=== PATIENT | female | born 1955 | race Caucasian/White ===

== ENCOUNTER → 2016-06-15 | Outpatient (CLI) | payer MEDICARE, OTHER ==
[~2016-06-15] MED LIST: BUTA1CAP PO; GABA300C5 PO; GLIP5TAB8 PO; KOMB2.5T PO; LIDO5CRE7 TOPICAL; LIDO5GEL RECTAL; LISI-363 PO; LISI-515 PO; LOSA50TA PO; METH5TAB4 PO; PROP10TA6 PO; PROP20TA3 PO; SAXA1TBM PO; SUMA25TA2 PO; TIZA4CAP3 PO; TRIA0.022 TOPICAL; VALA500T PO; [UNRECOGNIZED DRUG - SUPPLY]; test strips
[2016-06-15 08:25] LABS: AUTOMATED NEUTROPHIL # 1.9 TH/MM3 (1.8-7.7); BASOPHIL # 0.1 TH/MM3 (0-0.2); BASOPHIL % 1.2 % (0.0-2.0); EOSINOPHIL # 0.2 TH/MM3 (0-0.4); EOSINOPHIL % 4.1 % (0.0-4.0); HEMATOCRIT 36.2 % (35.0-46.0); HEMO FLAGS DIFF FINAL; LYMPH % 39.2 % (9.0-44.0); LYMPHOCYTE # 1.6 TH/MM3 (1.0-4.8); MEAN CELL VOLUME 82.8 FL (80.0-100.0); MEAN CORPUSCULAR HEMOGLOBIN 28.8 PG (27.0-34.0); MEAN CORPUSCULAR HGB CONC 34.7 % (32.0-36.0); MONO % 8.9 % (0.0-8.0); NEUT % 46.6 % (16.0-70.0); PLATELET COUNT 333 TH/MM3 (150-450); RED BLOOD COUNT 4.37 MIL/MM3 (4.00-5.30); RED CELL DISTRIBUTION WIDTH 13.9 % (11.6-17.2); WHITE BLOOD COUNT 4.1 TH/MM3 (4.0-11.0)
[2016-06-15 08:49] LABS: WESTERGREN SEDIMENTATION RATE 37 mm/hr (0-30)
[2016-06-15 09:01] LABS: ANION GAP 10 MEQ/L (5-15); BICARBONATE 26.1 MEQ/L (21.0-32.0); BLOOD UREA NITROGEN 14 MG/DL (7-18); CHLORIDE 105 MEQ/L (98-107); GLOMERULAR FILTRATION RATE 84 ML/MIN (>89); GLUCOSE,FASTING 168 MG/DL (74-99); HDL CHOLESTEROL 68.3 MG/DL (40.0-60.0); LDL CHOLESTEROL 76 MG/DL (0-99); POTASSIUM 4.3 MEQ/L (3.5-5.1); SODIUM (NA) 141 MEQ/L (136-145)
[2016-06-15 09:23] LABS: HEMOGLOBIN A1a 1.1 %; HEMOGLOBIN Ao 81.6 %; HEMOGLOBIN F 1.5 %; HEMOGLOBIN LA1C 2.4 %; HEMOGLOBIN P3 4.5 %
== END ==
LOC: CLAB 07:44
PROVIDERS: ATTEND Family Medicine
DX: L58.9 Radiodermatitis, unspecified (principal); E11.9 Type 2 diabetes mellitus without complications; I10 Essential (primary) hypertension; E03.9 Hypothyroidism, unspecified; R51 Headache
CPT/HCPCS: 36415; 80048; 80061; 83036; 84443; 85025; 85652

== ENCOUNTER → 2016-06-29 | Outpatient (CLI) | payer MEDICARE, OTHER ==
[~2016-06-29] MED LIST changes: -BUTA1CAP PO; -TIZA4CAP3 PO
[2016-06-29 08:01] LABS: FREE T3 7.55 PG/ML (2.18-3.98); FREE T4 1.85 NG/DL (0.76-1.46)
== END ==
LOC: CLAB 07:04
PROVIDERS: ATTEND Family Medicine
DX: R94.6 Abnormal results of thyroid function studies (principal)
CPT/HCPCS: 36415; 84439; 84443; 84481

== ENCOUNTER → 2016-07-13 | Outpatient (CLI) | payer MEDICARE, OTHER ==
[~2016-07-13] MED LIST changes: -LISI-363 PO; -SAXA1TBM PO
[2016-07-13 08:36] LABS: FREE T3 7.52 PG/ML (2.18-3.98); FREE T4 1.85 NG/DL (0.76-1.46)
[2016-07-15 23:51] LABS: THYROGLOBULN 27.9 ng/mL (())
== END ==
LOC: CLAB 07:15
PROVIDERS: ATTEND Family Medicine
DX: R94.6 Abnormal results of thyroid function studies (principal)
CPT/HCPCS: 36415; 84432; 84439; 84481; 86800

== ENCOUNTER 2016-07-19 10:51 | Emergency (ER) | payer MEDICARE, OTHER ==
[~2016-07-19] VITALS: Ht 172.7 cm; Wt 71.0 kg
[~2016-07-19 10:51] MED LIST changes: -METH5TAB4 PO; -PROP10TA6 PO; -PROP20TA3 PO; -TRIA0.022 TOPICAL; -VALA500T PO
[2016-07-19 10:53] VITALS: BP 168/73; PULSE 112; RESP 20; TEMP 98.1; O2SAT 99
[2016-07-19] MEDS ORDERED: SILVER SULFADIAZINE 1% CR 400 GM JAR TOPICAL ONE (11:30)
--- NOTE | 2016-07-19 12:01 | PD ---
HPI Chief Complaint: Pain: Acute or Chronic Time Seen by Provider: 11:16 Travel History International Travel<30 days: No Contact w/Intl Traveler<30days: No Traveled to known affect area: No History of Present Illness HPI Patient is a 60 year old female who comes in complaining of pain from chronic radiation painter. She had radiation for anal/rectal cancer in 2006 and has had the burn since then. She says she has had pain in the area for the past 3 weeks. She says that she went to see her PCP who gave her some lidocaine gel, which has helped a little, but she feels like it dried her skin. Currently, she has toothpaste and honey over the area. She denies fever or chills. She denies issues with moving her bowels. She says she had Silvadene cream in the past and this helped. She would like a tub of this lotion. PFSH Past Medical History ADHD: Yes Arthritis: No Bipolar Disorder: Yes Heart Rhythm Problems: No Cancer: Yes (anal/rectal) Cardiovascular Problems: No High Cholesterol: Yes Chemotherapy: Yes Chest Pain: No Congestive Heart Failure: No Diabetes: Yes (METFORMIN 07/18/16) Diminished Hearing: No Genitourinary: No Hepatitis: No Hiatal Hernia: No Hypertension: Yes Immune Disorder: No Musculoskeletal: No Neurologic: No Reproductive: No Respiratory: No Radiation Therapy: Yes (2007) Thyroid Disease: Yes Menopausal: Yes Past Surgical History Abdominal Surgery: No Cardiac Surgery: No Endocrine Surgery: No Eye Surgery: No Genitourinary Surgery: No Gynecologic Surgery: No Oral Surgery: No Thoracic Surgery: Yes (PORT INSERTION) Other Surgery: Yes (infusaport placed and removed) Social History Alcohol Use: No Tobacco Use: No Substance Use: No Allergies-Medications (Allergen,Severity, Reaction): Coded Allergies: No Known Allergies (Verified , 07/19/16) Reported Meds & Prescriptions Reported Meds & Active Scripts Active Propranolol (Propranolol HCl) 10 Mg Tab 10 Mg PO Q8HR Methimazole 5 Mg Tab 5 Mg PO DAILY Kombiglyze Xr (Saxagliptin-Metformin ER) 2.5-1,000 Mg Tab 1 Tab PO DAILY Lisinopril 20 Mg Tab 20 Mg PO DAILY Glipizide 5 Mg Tab 5 Mg PO DAILY Take 30 minutes before a meal Gabapentin 300 Mg Cap 300 Mg PO TID Sumatriptan (Sumatriptan Succinate) 25 Mg Tab 25 Mg PO DIRECTED PRN If a satisfactory response has not been obtained at 2 hours, a second dose may be administered Review of Systems General / Constitutional: No: Fever, Chills HENT: No: Headaches, Lightheadedness Respiratory: No: Shortness of Breath Gastrointestinal: No: Nausea, Vomiting, Abdominal Pain Genitourinary: No: Dysuria Skin: Positive Other (radiation burn) Neurologic: No: Weakness, Dizziness Physical Exam Narrative GENERAL: Awake and alert, in no acute distress. SKIN: Focused skin assessment warm/dry. Chronic radiation burn to the perineum and around the rectum. No warmth, or signs of infection. HEAD: Atraumatic. Normocephalic. EYES: Pupils equal and round. No scleral icterus. ENT: Mucous membranes pink and moist. CARDIOVASCULAR: Regular rate and rhythm. No murmur appreciated. RESPIRATORY: No accessory muscle use. Clear to auscultation. Breath sounds equal bilaterally. GASTROINTESTINAL: Abdomen soft, non-tender, nondistended. Hepatic and splenic margins not palpable. NEUROLOGICAL: Awake and alert. No obvious cranial nerve deficits. Motor grossly within normal limits. Normal speech. Data Data Last Documented VS Vital Signs Date Time Temp Pulse Resp B/P Pulse Ox O2 Delivery O2 Flow Rate FiO2 07/19/16 10:53 98.1 112 20 168/73 99 Room Air Orders Silver Sulfadi 1% Crm (400 Gm) (Silvaden (07/19/16 11:30) MDM Medical Decision Making Medical Screen Exam Complete: Yes Emergency Medical Condition: Yes Medical Record Reviewed: Yes Differential Diagnosis Cellulitis versus chronic pain versus radiation burn Narrative Course Patient is a 60-year-old female who comes in complaining of pain around her rectum from a radiation burn in 2006. Exam shows the radiation burn, no signs of infection. Patient is requesting Silvadene lotion. Given the lotion to put on. She told the nurse she was feeling better. I went to speak with the patient about discharge and she had already left. She took the Silvadene with her. She left before she could receive any discharge instructions her discharge papers. Diagnosis Primary Impression: Radiation burn Disposition: DISCHARGE HOME Condition: Stable Hilary Mohamud MD July 19, 2016 12:01
[2016-07-21] MEDS ORDERED: METH5TAB4 PO (16:59)
[2016-07-21] MEDS ORDERED: PROP10TA6 PO (16:59)
[2016-07-28] MEDS ORDERED: SUMA25TA2 PO (09:34)
[2016-07-28] MEDS ORDERED: PROP20TA3 PO (09:34)
[2016-08-11] MEDS ORDERED: METH5TAB4 PO (16:32)
[2016-09-01] MEDS ORDERED: METH5TAB4 PO (09:16)
[2016-09-01] MEDS ORDERED: TRIA0.022 TOPICAL (09:22)
[2016-09-01] MEDS ORDERED: VALA500T PO (09:22)
== END 2016-07-19 12:10 | disposition home or self-care (01) ==
LOC: NEPC 10:51
DX: T28.2XXA Burn of other parts of alimentary tract, initial encounter (principal); W88.8XXA Exposure to other ionizing radiation, initial encounter; Z85.048 Personal history of other malignant neoplasm of rectum, rectosigmoid junction, and anus
CPT/HCPCS: 99283

== ENCOUNTER → 2016-08-31 | Outpatient (CLI) | payer MEDICARE, OTHER ==
[~2016-08-31] MED LIST changes: -LIDO5CRE7 TOPICAL; -LIDO5GEL RECTAL; -LOSA50TA PO; +METH5TAB4 PO; +PROP20TA3 PO; +TRIA0.022 TOPICAL; +VALA500T PO; -[UNRECOGNIZED DRUG - SUPPLY]; -test strips
[2016-08-31 08:05] LABS: ALT (GPT) 22 U/L (10-53); ANION GAP 12 MEQ/L (5-15); AST (GOT) 15 U/L (15-37); BICARBONATE 23.4 MEQ/L (21.0-32.0); BLOOD UREA NITROGEN 11 MG/DL (7-18); CHLORIDE 105 MEQ/L (98-107); GLOMERULAR FILTRATION RATE 95 ML/MIN (>89); GLUCOSE,FASTING 186 MG/DL (74-99); POTASSIUM 4.2 MEQ/L (3.5-5.1); SODIUM (NA) 140 MEQ/L (136-145)
[2016-08-31 08:14] LABS: ALKALINE PHOSPHATASE 88 U/L (45-117); FREE T3 5.19 PG/ML (2.18-3.98); FREE T4 1.55 NG/DL (0.76-1.46); TOTAL BILIRUBIN ADULT 0.4 MG/DL (0.2-1.0)
== END ==
LOC: CLAB 06:56
PROVIDERS: ATTEND Family Medicine
DX: E05.00 Thyrotoxicosis with diffuse goiter without thyrotoxic crisis or storm (principal)
CPT/HCPCS: 36415; 80053; 84439; 84443; 84481

== ENCOUNTER → 2016-10-08 | Outpatient (CLI) | payer MEDICARE, OTHER ==
[~2016-10-08] MED LIST changes: +HYDR50TA94 PO; +METHI10 PO; +PERI8.6T PO
[2016-10-08 08:19] LABS: HEMATOCRIT 39.5 % (35.0-46.0); MEAN CELL VOLUME 85.8 FL (80.0-100.0); MEAN CORPUSCULAR HEMOGLOBIN 30.1 PG (27.0-34.0); MEAN CORPUSCULAR HGB CONC 35.1 % (32.0-36.0); PLATELET COUNT 270 TH/MM3 (150-450); RED CELL DISTRIBUTION WIDTH 13.9 % (11.6-17.2); REVIEW FLAG FINAL; WHITE BLOOD COUNT 6.4 TH/MM3 (4.0-11.0)
[2016-10-08 08:59] LABS: FREE T3 4.97 PG/ML (2.18-3.98); FREE T4 1.56 NG/DL (0.76-1.46)
== END ==
LOC: CLAB 07:25
PROVIDERS: ATTEND Family Medicine
DX: E05.00 Thyrotoxicosis with diffuse goiter without thyrotoxic crisis or storm (principal)
CPT/HCPCS: 36415; 84439; 84443; 84481; 85027

== ENCOUNTER → 2016-11-30 | Outpatient (CLI) | payer MEDICARE, OTHER ==
[~2016-11-30] MED LIST changes: +EX-L15TA PO; +LIDO5%T TOPICAL; -LISI-515 PO; +NAPR500T PO; -PERI8.6T PO; -SUMA25TA2 PO; +TIZA4TAB PO; -TRIA0.022 TOPICAL
[2016-11-30 07:36] LABS: HEMATOCRIT 39.8 % (35.0-46.0); MEAN CELL VOLUME 89.7 FL (80.0-100.0); MEAN CORPUSCULAR HEMOGLOBIN 30.6 PG (27.0-34.0); MEAN CORPUSCULAR HGB CONC 34.2 % (32.0-36.0); PLATELET COUNT 263 TH/MM3 (150-450); RED BLOOD COUNT 4.44 MIL/MM3 (4.00-5.30); RED CELL DISTRIBUTION WIDTH 14.5 % (11.6-17.2); REVIEW FLAG FINAL; WHITE BLOOD COUNT 6.5 TH/MM3 (4.0-11.0)
[2016-11-30 07:55] LABS: FREE T3 2.4 PG/ML (2.18-3.98); FREE T4 0.92 NG/DL (0.76-1.46)
== END ==
LOC: CLAB 06:52
PROVIDERS: ATTEND Family Medicine
DX: E05.00 Thyrotoxicosis with diffuse goiter without thyrotoxic crisis or storm (principal)
CPT/HCPCS: 36415; 84439; 84443; 84481; 85027

== ENCOUNTER → 2016-12-28 | Outpatient (CLI) | payer MEDICARE, OTHER ==
[2016-12-28 07:27] LABS: FREE T3 1.75 PG/ML (2.18-3.98); FREE T4 0.62 NG/DL (0.76-1.46)
== END ==
LOC: CLAB 06:35
PROVIDERS: ATTEND Family Medicine
DX: E05.00 Thyrotoxicosis with diffuse goiter without thyrotoxic crisis or storm (principal)
CPT/HCPCS: 36415; 84439; 84443; 84481

== ENCOUNTER → 2017-06-24 | Outpatient (CLI) | payer MEDICARE, OTHER ==
[~2017-06-24] MED LIST changes: +ATOR40TA16 PO; +LIDO2.5C17 TP; -LIDO5%T TOPICAL; -METH5TAB4 PO; -NAPR500T PO; +NAPR500T2 PO
[2017-06-24 07:32] LABS: HEMATOCRIT 40.6 % (35.0-46.0); HEMOGLOBIN 13.6 GM/DL (11.6-15.3); MEAN CELL VOLUME 93.4 FL (80.0-100.0); MEAN CORPUSCULAR HEMOGLOBIN 31.3 PG (27.0-34.0); MEAN CORPUSCULAR HGB CONC 33.6 % (32.0-36.0); MEAN PLATELET VOLUME 7.8 FL (7.0-11.0); PLATELET COUNT 271 TH/MM3 (150-450); RED BLOOD COUNT 4.35 MIL/MM3 (4.00-5.30); RED CELL DISTRIBUTION WIDTH 14.1 % (11.6-17.2); WHITE BLOOD COUNT 8.1 TH/MM3 (4.0-11.0)
[2017-06-24 07:36] LABS: FREE T3 1.25 PG/ML (2.18-3.98); FREE T4 0.25 NG/DL (0.76-1.46)
== END ==
LOC: CLAB 06:43
PROVIDERS: ATTEND Family Medicine
DX: E05.00 Thyrotoxicosis with diffuse goiter without thyrotoxic crisis or storm (principal)
CPT/HCPCS: 36415; 84439; 84443; 84481; 85027

== ENCOUNTER → 2017-08-13 | Outpatient (CLI) | payer MEDICARE, OTHER ==
[2017-08-13 08:09] LABS: FREE T3 1.01 PG/ML (2.18-3.98); FREE T4 0.18 NG/DL (0.76-1.46)
== END ==
LOC: CLAB 06:58
PROVIDERS: ATTEND Family Medicine
DX: E05.00 Thyrotoxicosis with diffuse goiter without thyrotoxic crisis or storm (principal)
CPT/HCPCS: 36415; 84439; 84443; 84481